=== PATIENT | female | born 1970 | race African-American/Black ===

== ENCOUNTER 2016-09-04 09:54 | Emergency (ER) | payer BC ==
--- NOTE | ~2016-09-04 | EKG ---
PATIENT: RANDY JAVIER UNIT #: [id number] Ventricular Rate: 69 BPM Atrial Rate: 69 BPM P-R Interval: 152 ms QRS Duration: 80 ms Q-T Interval: 430 ms QTC Calculation(Bezet): 460 ms P [place]: 20 degrees Calculated R [place]: 40 degrees Calculated T [place]: 31 degrees Diagnosis Line: Normal sinus rhythm Diagnosis Line: Normal ECG Diagnosis Line: When compared with ECG of 21-MAR-2009 21:03, Diagnosis Line: No significant change was found Diagnosis Line: Confirmed by BRIGID GAMING MD ([id number]) on Diagnosis Line: 09/04/2016 2:28:31 PM INTERPRETING MD: AMBERLY ADAME
--- NOTE | ~2016-09-04 | CR72 ---
[facility] A Service of [facility] RADIOLOGY TEXT RESULTS PATIENT: RANDY JAVIER LOCATION: [facility] : 70 UNIT #: [id number] AGE: [address]: Toni Hernandez MD SEX: F ORDER DR: [id number] [facility] [address] [place], [place] [address] [id number] E MR#: [id number] Acc #: [id number] NAME: RANDY JAVIER : 1970 SEX: F STUDY DATE/TIME: 09/04/2016 UNIT: [facility] ROOM: STUDY DESCRIPTION: CR Chest Single View Portable Attending Physician: Toni Hernandez M.D. Ordering Physician: Toni Hernandez M.D. Primary Care Physician: Generic Doctor Not In System MEDICAL IMAGING REPORT This report is preliminary unless electronic signature is present EXAM Chest, portable, 09/04/2016, 1011 hours. HISTORY 46-year-old woman with complaint of right-sided chest pain today. COMPARISON STUDIES 03/21/2009 FINDINGS Portable upright chest demonstrates normal cardiac, mediastinal, and hilar contours. Lungs are well-inflated with stable benign calcified granulomata. There is no acute pulmonary or pleural finding. Postop change Lap-Band noted. IMPRESSION 1. No acute cardiopulmonary findings. Lungs are well-inflated with stable calcified granulomatous changes. 2. Postop Lap-Band placement. Dictated by... Fidelina Beatty M.D. THIS IS AN ELECTRONICALLY VERIFIED REPORT Fidelina Beatty M.D. at 09/05/2016 9:38 AM KAMINI/sue TD: 09/04/2016 14:49 JOB #: [id number] [facility] A Service of [facility] RADIOLOGY TEXT RESULTS PATIENT: RANDY JAVIER LOCATION: [facility] : 70 UNIT #: [id number] AGE: [address]: Toni Hernandez MD SEX: F ORDER DR: MEDICAL IMAGING REPORT Page 1 of 1 COPY
--- NOTE | ~2016-09-04 | US67 ---
[facility] A Service of [facility] RADIOLOGY TEXT RESULTS PATIENT: RANDY JAVIER LOCATION: [facility] : 70 UNIT #: [id number] AGE: [address]: Toni Hernandez MD SEX: F ORDER DR: [id number] [facility] [address] [place], [place] [address] [id number] E MR#: [id number] Acc #: [id number] NAME: RANDY JAVIER : 1970 SEX: F STUDY DATE/TIME: 09/04/2016 12:30 UNIT: [facility] ROOM: STUDY DESCRIPTION: US Gallbladder Attending Physician: Toni Hernandez M.D. Ordering Physician: Toni Hernandez M.D. Primary Care Physician: Generic Doctor Not In System MEDICAL IMAGING REPORT This report is preliminary unless electronic signature is present EXAM Gallbladder ultrasound 09/04 INDICATIONS Abdominal pain for 1 day but intermittently over the last year. FINDINGS Sonographic evaluation is performed in the right upper quadrant in multiple planes. Liver parenchyma is homogeneous and normal. No liver mass is seen. Gallbladder is normal. There is no gallbladder wall thickening, and there are no gallstones. The common duct is normal at 5 mm internal diameter. The right kidney is morphologically normal and nonobstructed. No free fluid is seen. The pancreas is normal. IMPRESSION Negative right upper quadrant ultrasound. The gallbladder is normal. Dictated by... Woodrow Pfeiffer Jr., M.D. THIS IS AN ELECTRONICALLY VERIFIED REPORT Woodrow Pfeiffer Jr., M.D. at 09/04/2016 6:58 PM JAN/bolivar TD: 09/04/2016 18:48 JOB #: [id number] MEDICAL IMAGING REPORT Page 1 of 1 COPY
[~2016-09-04 09:54] MED LIST: ACETAMINOPHEN PO; AMOXIL500 M1 PO; ANTIPYRINE/BENZOCAIN; ASPIRIN PO; ASPIRINEC PO; AUGMENTIN; BP MED; BYSTOLIC; CERTAGEN PO; CIPRO HC OTIC S10 ML AS; CIPRODEX OTIC7.5 ML OT; FAMOTIDINE PO; HCTZ PO; IBUPROFEN; LIPITOR PO; NEO/POLYMYXIN/H10 M1; TYLOX 5/500 CAP1 CAP PO; ULTRACET TABLET1 TAB; VICODIN 5/1 TAB 5/50 PO; VICODIN 5/500 T1 TAB PO
[2016-09-04 10:05] LABS: POC - CKMB <1.0 ng/mL (0.0-7.9); POC - TROPONIN <0.05 ng/mL (<=0.05)
[2016-09-04 10:10] LABS: BASOPHIL% 0.6 % (0-2.5); EOSINOPHIL% 1.3 % (0.0-7.0); HEMATOCRIT 37.2 % (35.0-45.0); HEMOGLOBIN 12.4 gm/dL (12.0-16.0); LYMPHOCYTE# 1.6 X10e3 (1.0-3.5); LYMPHOCYTE% 42.7 % (17.0-45.0); MEAN CELL VOLUME 87.6 FL (83-96); MEAN CORPUSCULAR HEMOGLOBIN 29.2 PG (28-34); MEAN CORPUSCULAR HGB CONC 33.3 g/dL (30-36); MEAN PLATELET VOLUME 7.8 FL (6.5-11.5); MONOCYTE# 0.3 X10e3 (0-1.0); MONOCYTE% 8.8 % (3.0-12.0); NEUTROPHIL# 1.7 X10e3 (1.5-7.1); NEUTROPHIL% 46.6 % (40-75); PLATELET COUNT 221 X10e3 (140-420); RED BLOOD COUNT 4.25 X10e (3.90-5.30); RED CELL DISTRIBUTION WIDTH 12.8 % (11.0-15.5); WHITE BLOOD COUNT 3.6 X10e3 (4.0-10.5)
[2016-09-04 10:12] LABS: DIFF IND NO
[2016-09-04 10:51] LABS: ALBUMIN SERUM 3.9 g/dL (3.5-5.0); ALKALINE PHOSPHATASE 69 U/L (32-92); ALT (SGPT) 10 U/L (10-40); AST (SGOT) 20 U/L (10-42); BILIRUBIN, DIRECT 0.2 mg/dL (0.0-0.2); BILIRUBIN,INDIRECT 0.9 mg/dL (0.0-0.9); BILIRUBIN,TOTAL 1.1 mg/dL (0.2-2.0); BLOOD UREA NITROGEN 19 mg/dL (9-23); BUN/CREATININE RATIO 21.11; CALCIUM SERUM 9.1 mg/dL (8.4-10.2); CARBON DIOXIDE 25 mmol/L (22-31); CHLORIDE 104 mmol/L (100-111); CREATININE SERUM 0.9 mg/dL (0.6-1.4); GLOM FILT RATE Estimated ABOVE60 mL/min (>60); GLUCOSE FASTING 78 mg/dL (70-110); LIPASE 26 U/L (22-51); POTASSIUM 3.4 mmol/L (3.5-5.1); PROTEIN TOTAL SERUM 7.5 g/dL (6.0-8.3); SODIUM 138 mmol/L (135-145)
[2016-09-04 12:25] LABS: POC - CKMB <1.0 ng/mL (0.0-7.9); POC - TROPONIN <0.05 ng/mL (<=0.05)
== END 2016-09-04 14:05 | disposition home or self-care (01) ==
LOC: CED 09:54
PROVIDERS: Emergency Medicine
DX: R07.9 Chest pain, unspecified (principal); R10.13 Epigastric pain; R10.11 Right upper quadrant pain; I10 Essential (primary) hypertension; Z98.890 Other specified postprocedural states
CPT/HCPCS: 36415; 71010; 76705; 80048; 80076; 82553; 83690; 84484; 85025; 93005; 96374; 99284; J2270